=== PATIENT | female | born 1965 | race African-American/Black ===

== ENCOUNTER 2017-02-04 21:35 | Emergency (ER) | payer OTHER, SELFPAY ==
[2017-02-04] MEDS ORDERED: Ketorolac Tromethamine 30 MG/ML VIAL ONE (21:51)
[2017-02-04] MEDS ORDERED: HYDROcodone/Acetaminophen 10/325 mg Tablet ONE (22:25)
--- NOTE | 2017-02-04 22:35 | RAD ---
TWO VIEWS OF THE LEFT HUMERUS 02/04/2017 HISTORY: Fall. Pain. COMPARISON: None. FINDINGS: There is a fracture involving the left humeral neck. This fracture is transversely oriented and dem onstrates mild impaction. There is probable comminution as well, with a subtle, vertically oriented fracture line in the region of the greater tuberosity. There is no displacement or evidence of dis location. IMPRESSION: Proximal left humeral fracture, as described above. POS: SIMONE
== END 2017-02-04 22:37 | disposition home or self-care (01) ==
LOC: NAV ERS 21:35
DX: S42.202A Unspecified fracture of upper end of left humerus, initial encounter for closed fracture (principal); F17.210 Nicotine dependence, cigarettes, uncomplicated; W17.89XA Other fall from one level to another, initial encounter
CPT/HCPCS: 96372; J1885

== ENCOUNTER 2022-08-09 13:23 | Emergency (ER) | payer OTHER, SELFPAY | END 2022-08-09 15:05 | disposition home or self-care (01) | LOC: NAV ERS 13:23 | DX: S93.402A Sprain of unspecified ligament of left ankle, initial encounter (principal); F17.210 Nicotine dependence, cigarettes, uncomplicated; W08.XXXA Fall from other furniture, initial encounter ==